=== PATIENT | female | born 1965 ===

== ENCOUNTER 2020-08-11 12:45 | Observation (INO) | payer OTHER ==
[2020-08-11] MEDS ORDERED: Ondansetron PF 4 MG/2 ML Vial ONE ×2 (12:53→15:29)
[2020-08-11] MEDS ORDERED: Morphine 4 MG/ML VIAL ONE (12:53)
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
[2020-08-11 13:38] LABS: #Basophils 0.1 thou/uL (0.0-0.2); #Eosinphils 0.4 thou/uL (0.0-0.7); #Lymphocytes 3.8 thou/uL (1.20-3.40); #Monocytes 0.6 thou/uL (0.11-0.59); %Basophils 0.4 % (0.0-1.0); %Eosinophils 1.8 % (0.0-10.0); %Lymphocytes 19.1 % (21.0-51.0); %Monocytes 3.2 % (0.0-10.0); %Neutrophils 75.5 % (42.0-75.0); Hemoglobin 13.1 g/dL (12.0-16.0); Mean Corpuscular HGB CONC 33.8 g/dL (32.0-36.0); Mean Corpuscular Hemoglobin 32.2 pg (27.0-31.0); Mean Corpuscular Volume 95.4 fL (78.0-98.0); Mean Platelet Volume 9.7 fL (7.4-10.4); Platelet Count 218 thou/uL (130-400); RBC Distribution Width 12.3 % (11.5-14.5); Red Blood Cell (RBC) Count 4.05 mill/uL (4.20-5.40); White Blood Cell (WBC) Count 19.8 thou/uL (4.8-10.8)
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
[2020-08-11] MEDS ORDERED: Ketamine 50 MG/ML (10ML VIAL) ONE (13:59)
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
[2020-08-11 14:27] LABS: ALT (SGPT) 22 U/L (8-55); AST (SGOT) 22 U/L (5-34); Albumin 4.2 g/dL (3.5-5.0); Alkaline Phosphatase 110 U/L (40-110); Anion Gap 16 mmol/L (10-20); BUN (Urea Nitrogen) 11 mg/dL (9.8-20.1); Bilirubin, Total 0.3 mg/dL (0.2-1.2); Calc. Creatinine Clearance 0 mL/min (70-130); Calcium 8.9 mg/dL (7.8-10.44); Carbon Dioxide 22 mmol/L (22-29); Chloride 105 mmol/L (98-107); Estimated GFR-MDRD 82; Globulin 3.1 g/dL (2.4-3.5); Glucose 157 mg/dL (70-105); Potassium 3.4 mmol/L (3.5-5.1); Protein, Total 7.3 g/dL (6.0-8.3); Sodium 140 mmol/L (136-145)
--- NOTE | 2020-08-11 15:17 | RAD ---
EXAM: 2 views of the right shoulder HISTORY: Post reduction of shoulder dislocation COMPARISON: 08/11/2020 at 12:59 PM FINDINGS: There is a comminuted fracture of the proximal humerus. The metaphysis of the humerus is be tter aligned with the glenoid but the head of the humerus is still dislocated. IMPRESSION: Comminuted humeral neck fracture with persistent dislocation of the humeral head. Orthopedic consulta tion is recommended.
[2020-08-11] MEDS ORDERED: Lidocaine 1% PF 5 ML VIAL ONE (15:29)
[2020-08-11] MEDS ORDERED: EPHEDRINE 25 MG/5 ML SYRINGE ONE (15:29)
[2020-08-11] MEDS ORDERED: PROPOFOL 200 MG/20 ML VIAL ONE (15:29)
[2020-08-11] MEDS ORDERED: Glycopyrrolate 0.2 MG/ML 5 ML SYRINGE ONE (15:29)
[2020-08-11] MEDS ORDERED: Ketorolac Tromethamine 30 MG/ML VIAL ONE (15:29)
[2020-08-11] MEDS ORDERED: Dexamethasone 20 MG/5 ML VIAL ONE (15:29)
[2020-08-11] MEDS ORDERED: Rocuronium Bromide 10 MG/ML (10ML VIAL) ONE (15:29)
[2020-08-11] MEDS ORDERED: Iopamidol-370 76% 500 ML 1 ML ONE (16:20)
[2020-08-11] MEDS ORDERED: Dextrose 5% in Water 1,000 ML IV PRN (17:22)
[2020-08-11] MEDS ORDERED: Morphine 2 MG/ML VIAL SLOW IVP PRN ×2 (17:22→19:52)
[2020-08-11] MEDS ORDERED: Ondansetron PF 4 MG/2 ML Vial IVP PRN (17:22)
[2020-08-11] MEDS ORDERED: Dextrose 50% Abboject 50 ML SYRINGE SLOW IVP PRN (17:22)
[2020-08-11] MEDS ORDERED: Cyclobenzaprine 10 MG TAB PO PRN (17:26)
[2020-08-11] MEDS ORDERED: traMADol HCl 50 MG TAB PO PRN ×2 (17:26→19:53)
[2020-08-11] MEDS ORDERED: Ibuprofen 200 MG TAB PO PRN (17:36)
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
[2020-08-11 18:21] LABS: Phosphorus 3.9 mg/dL (2.3-4.7)
[2020-08-11] MEDS ORDERED: HYDROmorphone 0.5 MG/0.5 ML SYRINGE ONE (19:15)
[2020-08-11] MEDS ORDERED: Fentanyl 100 MCG/2 ML VIAL ONE ×2 (19:15→22:06)
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
[2020-08-11] MEDS ORDERED: HYDROmorphone 2 MG/ML VIAL SLOW IVP PRN (20:55)
[2020-08-11] MEDS ORDERED: Ondansetron HCl/PF 4 MG/2 ML Vial IVP PRN (20:55)
[2020-08-11] MEDS ORDERED: Promethazine HCl 25 MG/ML VIAL SLOW IVP PRN (20:55)
[2020-08-11] MEDS ORDERED: Promethazine HCl 25 MG/ML VIAL IM PRN (20:55)
[2020-08-11] MEDS ORDERED: PACU-Morphine 4MG/ML VIAL SLOW IVP PRN (20:55)
--- NOTE | 2020-08-11 21:54 | RAD ---
TWO VIEWS RIGHT SHOULDER: 08/11/20 PROVIDED CLINICAL HISTORY: Post ORIF. FINDINGS/IMPRESSION: Two spot fluoroscopic images of the right proximal humerus demonstrate interval postoperative change s of ORIF of previously described right proximal humeral fracture with resultant improved alignment. POS: [facility]
[2020-08-11] MEDS: Acetaminophen 500 MG TAB PO SCH (23:03)
[2020-08-11] MEDS: traMADol HCl 50 MG TAB PO SCH (23:03)
[2020-08-11 23:11] VITALS: BMI 20.8
[2020-08-12] MEDS: Ibuprofen 200 MG TAB PO SCH ×3 (00:16→13:54)
[2020-08-12] MEDS: traMADol HCl 50 MG TAB PO SCH ×3 (00:16→12:12)
[2020-08-12] MEDS: Acetaminophen 500 MG TAB PO SCH ×3 (00:16→12:12)
[2020-08-12] MEDS: Senokot S 8.6-50 MG TAB PO SCH ×2 (00:16→08:53)
[2020-08-12] MEDS: Sodium Chloride 0.9% 1,000 ML IV SCH ×4 (00:17→17:56)
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
[2020-08-12] MEDS: CEFAZOLIN 2 GM in Premix Bag 1 BAG IVPB SCH ×2 (05:01→12:12)
[2020-08-12 05:52] LABS: #Lymphocytes 1.1 thou/uL (1.20-3.40); #Monocytes 0.4 thou/uL (0.11-0.59); #Neutrophils 13.7 thou/uL (1.40-6.50); %Eosinophils 0.1 % (0.0-10.0); %Lymphocytes 7.4 % (21.0-51.0); %Monocytes 2.5 % (0.0-10.0); Hemoglobin 10.9 g/dL (12.0-16.0); Mean Corpuscular HGB CONC 31.4 g/dL (32.0-36.0); Mean Corpuscular Hemoglobin 30.6 pg (27.0-31.0); Mean Corpuscular Volume 97.5 fL (78.0-98.0); Mean Platelet Volume 9.6 fL (7.4-10.4); Platelet Count 188 thou/uL (130-400); RBC Distribution Width 12.5 % (11.5-14.5); Red Blood Cell (RBC) Count 3.57 mill/uL (4.20-5.40); White Blood Cell (WBC) Count 15.3 thou/uL (4.8-10.8)
[2020-08-12 05:56] LABS: INR-International Normal Ratio 0.9; PTT 25.2 sec (22.9-36.1); Prothrombin Time 12.3 sec (12.0-14.7)
[2020-08-12 06:14] LABS: Anion Gap 15 mmol/L (10-20); BUN (Urea Nitrogen) 15 mg/dL (9.8-20.1); Calc. Creatinine Clearance 73 mL/min (70-130); Calcium 8.6 mg/dL (7.8-10.44); Carbon Dioxide 23 mmol/L (22-29); Chloride 104 mmol/L (98-107); Estimated GFR-MDRD 75; Glucose 139 mg/dL (70-105); Magnesium 1.9 mg/dL (1.6-2.6); Potassium 3.9 mmol/L (3.5-5.1); Sodium 138 mmol/L (136-145)
[2020-08-12 06:18] LABS: Phosphorus 5.1 mg/dL (2.3-4.7)
[2020-08-12] MEDS ORDERED: Polyethylene Glycol 3350 17 GM Packet PO SCH ×2 (09:00)
[2020-08-12] MEDS ORDERED: Famotidine 20 MG TAB PO SCH (09:00)
[2020-08-12 12:08] LABS: SARS-CoV-2 MS2 Positive; SARS-CoV-2 N Gene Negative; SARS-CoV-2 S Gene Negative; SARS-CoV-2 by NAA Not Detected (NotDetected); SARS-CoV-2 orf1ab Negative
[2020-08-12 15:35] VITALS: BP 109/70; TEMP 98.2
== END 2020-08-12 16:50 | disposition home or self-care (01) ==
LOC: ERS 12:45 → SDC/OP 18:04 → SJJU 23:00
PROVIDERS: ADMIT Surgery; ATTEND Orthopaedic Surgery
PROC: 0RSJ04Z Reposition Right Shoulder Joint with Internal Fixation Device, Open Approach (ICD-10-PCS; principal; 2020-08-12)
DX: S42.201A Unspecified fracture of upper end of right humerus, initial encounter for closed fracture (principal); G89.11 Acute pain due to trauma; I10 Essential (primary) hypertension; V89.2XXA Person injured in unspecified motor-vehicle accident, traffic, initial encounter; Z20.828 Contact with and (suspected) exposure to other viral communicable diseases
CPT/HCPCS: 23650; 36415; 70450; 71045; 71260; 72125; 74177; 76000; 80048; 80053; 83735; 84100; 84702; 85025; 85610; 85730; 87635; 96361; 96365; 96366; 96374; 96375; 96376; 99152; C1713; G0378; G0390; J0690; J1100; J1170; J1885; J2270; J2405; J2704; J3010; J7030; Q9967; U0003